=== PATIENT | female | born 1995 | race Caucasian/White ===

== ENCOUNTER 2021-06-14 01:59 | Inpatient (IN) ==
--- NOTE | 2021-06-12 08:28 | Anesthesiology Consultation ---
Date of Service June 12, 2021 Assessment & Plan (1) Encounter for pre-operative examination: COVID screening: Per assessment on 06/12: Travel screen negative, no known COVID- 19 positive contacts or current COVID-19 related symptoms. Patient vaccinated. Surgeon arranging preop COVID testing. Awaiting results. 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 Surgery Operation Date: 06/14/21 07:30 Proposed Procedures p Section in LD - Shilpa Candelario MD Height/Weight Height: 5 ft 2 in Weight: 122.47 kg Allergies Allergy/AdvReac Type Severity Reaction Status Date / Time No Known Allergies Allergy Verified 06/08/21 09:25 Medications Home Medications Medication Instructions Recorded Confirmed Last Taken prenat.vits,moshe,pib-[id number] 1 tab PO DAILY 10/30/20 06/12/21 Unknown diphenhydramine HCl [Unisom 1 tab PO HS 11/07/20 06/12/21 Unknown (diphenhydramine)] promethazine 12.5 mg tablet 12.5 mg PO Q6H PRN #30 tab 12/05/20 06/12/21 Unknown metoclopramide HCl 10 mg tablet 10 mg PO Q6H PRN #30 tab 12/18/20 06/12/21 Unknown (Reglan) famotidine 20 mg tablet (Pepcid) 20 mg PO BID #180 tab 01/02/21 06/12/21 Unknown vitamin B6-vitamin E-magnesium 1 tab PO DAILY 06/12/21 06/12/21 Unknown tablet Past Medical History Medical History Anxiety Endometriosis determined by laparoscopy GERD (gastroesophageal reflux disease) DURING Past Family History Family History Father Diabetes Brother Anxiety Grandmother (Maternal) Ovarian cancer great grandmother Grandfather (Maternal) Myocardial infarction Other No family history of adverse response to anesthesia Denies family history of Prostate cancer Breast cancer Colorectal cancer Past Surgical History Surgical History History of laparoscopy [place] teeth removed Social History Smoking Status: Never smoker Hx Alcohol Use: No Alcohol type: wine Hx Substance Use: No substance use type: does not use
--- NOTE | 2021-06-13 12:05 | History & Physical Report ---
Date of Service June 13, 2021 Assessment & Plan (1) Encounter for pre-operative examination: (2) Breech presentation: Plan: -NST reactive today, normal DVP, still breech on US -reviewed ecv vs proceeding w/ primary CS, pt desires to proceed with CS -Discussed indications, risks, benefits, alternatives with risks including infection, bleeding, injury to adjacent structures (bowel, bladder, ureters, blood vessels, nerves, baby), possible need for blood transfusion and/or life saving hysterectomy, VTE. Consent reviewed in detail w/ pt and signed after all questions answered to her satisfaction. History of Present Illness Chief Complaint: pre-op for CS, breech Primary Care Provider: AMADA Ireland 25 y/o G1 at 39 3/7 wga presents for pre-op appt for planned primary CS for breech. c/b resolved FGR, growth on 05/24 was EFW 26%. +FM; denies regular ctx, LOF, VB. 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 denies hx STIs 10/2018 neg cytology, denies hx abnl Allergies Allergy/AdvReac Type Severity Reaction Status Date / Time No Known Allergies Allergy Verified 06/13/21 11:26 Patient History Medical History Anxiety Endometriosis determined by laparoscopy GERD (gastroesophageal reflux disease) DURING Surgical History History of laparoscopy [place] teeth removed Family History Father Diabetes Brother Anxiety Grandmother (Maternal) Ovarian cancer great grandmother Grandfather (Maternal) Myocardial infarction Other No family history of adverse response to anesthesia Denies family history of Prostate cancer Breast cancer Colorectal cancer Social History Smoking Status: Never smoker Second Hand Exposure: Yes ( A CHILD); Hx Alcohol Use: No Hx Substance Use: No Preferred Language: Slovak Communication Ability: Effective Visual Impairment: No Limitations Hearing Ability: Normal Latexer Required: No Beliefs That Will Affect Care: None marital status: marital status details: Chao Chappell (23) [phone] Current Living Situation: Spouse Current Living Situation Comment: lives with Spouse. 1 cat-spouse changing litter. current occupational status: employed current occupation: [employer] Feels Safe at Home: Yes Dental Care, Regularly: Yes Physical Activity Frequency: 3-4 Times per Week Seatbelt Use: always Sunscreen Use: Yes Assistive Devices: None Physical Exam Genitourinary: OB Exam Abdomen: + breech NST reactive Results & Data ([facility]) Laboratory Results OB Labs: Blood Type B Positive 11/07/20 Antibody Screen NEGATIVE 11/07/20 Hemoglobin 11.5 g/dL (12.0-16.0) L 04/09/21 Hematocrit 35.5 % (37-47) L 04/09/21 Mean Corpuscular Volume 88.7 fL (80-100) 11/07/20 Platelet Count 407 K/uL (130-400) H 11/07/20 Rubella IgG Antibody Immune (Immune) 11/07/20 Rapid Plasma Reagin Nonreactive (Nonreactive) 11/07/20 Hepatitis B Surface Antigen Neg (Neg) 11/07/20 HIV (1&2) Ab and P24 Ag, 4th Gener Neg (Neg) 11/07/20 Glucose 1 Hour 50 gm Load 106 mg/dl (70-130) 04/09/21 Maternal Serum Alpha Fetoprotein 29.0 ng/mL 01/02/21 OB Optional Labs: Chlamydia trachomatis RNA NOT DETECTED (NOT DETECTED) 11/07/20 Neisseria gonorrhoeae RNA NOT DETECTED (NOT DETECTED) 11/07/20 Thyroid Stimulating Hormone (TSH) 4.310 uIu/ml (0.300-4.500) 05/18/20 Alpha Fetoprotein Triple Screen SEE NOTE 01/02/21 Labs Reviewed: neg cf/sma - SLN low risk cfdna neg afp GBS neg Covid neg Diagnostic Findings 05/24 EFW 26%, post plac Coding Level of Care Code None Diagnoses Encounter for pre-operative examination Z01.818 Breech presentation O32.1XX0
[2021-06-14] MEDS ORDERED: ceFAZolin 3,000 MG in DEXTROSE 5% 50 ML IV SCH (06:00)
[2021-06-14] MEDS ORDERED: CITRIC ACID/SODIUM CITRATE 15 ML UDC PO SCH (06:00)
[2021-06-14] MEDS ORDERED: LACTATED RINGER'S 1,000 ML IV SCH ×2 (06:00→10:32)
[2021-06-14 06:29] LABS: Basophils # (auto) 0.02 K/uL (0-0.2); Basophils % (auto) 0.1 %; Eosinophils # (auto) 0.12 K/uL (0-0.5); Eosinophils % (auto) 0.8 %; Hematocrit (blood only) 33.6 % (37-47); Hemoglobin 11.2 g/dL (12.0-16.0); Immature Granulocytes # (auto) 0.07 K/uL (0.00-0.02); Immature Granulocytes % (auto) 0.4 %; Lymphocytes # (auto) 2.18 K/uL (1.2-3.4); Lymphocytes % (auto) 13.7 %; Mean Corpuscular Hemoglobin 29.3 pg (25-34); Mean Corpuscular Hgb Conc 33.3 g/dL (32-36); Monocytes % (auto) 5.7 %; Neutrophils # (auto) 12.58 K/uL (1.4-6.5); Neutrophils % (auto) 79.3 %; Platelet Count 306 K/uL (130-400); RDW Coefficient of Variation 13.6 % (11.5-14.5); RDW Standard Deviation 43.9 fL (36.4-46.3); Red Blood Count 3.82 M/uL (4.2-5.4); White Blood Count 15.87 K/uL (4.8-10.8)
--- NOTE | 2021-06-14 07:21 | History & Physical Bridge Note ---
Date of Service June 14, 2021 History & Physical Bridge Note I have examined the patient, reviewed the History & Physical and in the interval since the performance of the History & Physical I have noted the following changes of clinical significance: no changes noted. BSUS confirms breech presentation this AM, will proceed with CS
[2021-06-14] MEDS ORDERED: NALBUPHINE HCL INJ 10 MG/ML AMP IV PRN (07:45)
[2021-06-14] MEDS ORDERED: PROMETHAZINE HCL 12.5 MG in SODIUM CHLORIDE 0.9% 50 ML IV PRN (07:45)
[2021-06-14] MEDS ORDERED: LACTATED RINGER'S 500 ML IV PRN (07:45)
[2021-06-14] MEDS ORDERED: diphenhydrAMINE 50 MG/ML VIAL IV PRN (07:45)
[2021-06-14] MEDS ORDERED: NALOXONE HCL 0.08 MG in SYRINGE 1.8 ML IV PRN (07:45)
[2021-06-14] MEDS ORDERED: SODIUM CHLORIDE 0.9% 1000ML 1,000 ML IV SCH (07:45)
[2021-06-14] MEDS ORDERED: NALOXONE HCL 0.4 MG/1 ML VIAL/CARP IV PRN (07:45)
[2021-06-14] MEDS ORDERED: KETOROLAC 30 MG/ML VIAL IV PRN (07:45)
[2021-06-14] MEDS ORDERED: MoRPHine SULFATE PF 1 MG/ML 10 ML AMP/VIAL INT SPINAL ONE (07:45)
[2021-06-14] MEDS ORDERED: NO NARCOTICS OR SEDATIVES SCH (07:45)
[2021-06-14] MEDS ORDERED: ePHEDrine sulfate 50 MG/ML AMP IV PRN (07:45)
[2021-06-14] MEDS ORDERED: NALOXONE HCL 1 MG in SODIUM CHLORIDE 0.9% 1000ML 1,000 ML IV PRN (07:45)
[2021-06-14] MEDS ORDERED: MoRPHine SULFATE 2 MG/ML CARP IV PRN (07:45)
[2021-06-14] MEDS ORDERED: ONDANSETRON INJ 2 MG/ML 2 ML VIAL IV PRN (07:45)
[2021-06-14] MEDS ORDERED: DC INTRASPINAL MORPHINE SCH (07:45)
--- NOTE | 2021-06-14 08:51 | Operative Report ---
PG Post Operative Report Pre & Post Diagnosis Operation Date: 06/14/21 07:30 Pre-Op Diagnosis: Single intrauterine at 39 4/7 wga; Breech Presentation; Resolved growth restriction; BMI 49 Post-Op Diagnosis: Single intrauterine at 39 4/7 wga; Breech Presentation; Resolved growth restriction; BMI 49 I identified the patient and participated in the time-out.: Yes Procedure Operation Date: 06/14/21 07:30 Actual Procedures p Primary Low Section in LD;delivery of live female - Shilpa Candelario MD Surgeon Shilpa Candelario MD Crystal Growing Technician MD Soniya Estimated Blood Loss 400 Findings Consistent with Post-Op Diagnosis Normal appearing uterus, bilateral fallopian tubes, ovaries. Viable female w/ apgars of 8 and 8 at 1 and 5 minutes, respectively Fluids 2300cc crystalloid, 50cc clear urine by og Specimens a. cord blood b. placenta-hold Drains Og draining clear urine Anesthesia Type Spinal Complications none Disposition Accompanied Patient To Recovery: Yes Disposition: L&D Indications 25 y/o G1 at 39 4/7 wga presents for planned primary for breech presentation. complicated by resolved growth restriction, most recently EFW 26% on 05/24. Fetus has been persistently breech and pt declines ECV. Description of Procedure The patient was taken to the operating room after consents were ensured. The patient was properly identified. Spinal anesthesia was obtained without difficulty. The patient was placed in a dorsal supine position with left lateral tilt, then prepped and draped in normal sterile fashion. Surgical time out was performed. Antibiotics were given for prophylaxis. Anesthesia was tested to ensure adequate surgical levels. Pfannenstiel skin incision was performed and carried down to the underlying fascia with a knife. The fascia was then nicked in the midline and extended laterally with pickups and Meyer scissors. Superior portion of the fascia was grasped with Kochers x2 and elevated off the underlying rectus muscles bluntly and sharply. Inferior portion of the fascia was then grasped with Анна clamps x2 and also elevated off the underlying muscles with blunt dissection. Midline was identified. The peritoneum was then entered and extended to provide adequate room for delivery of baby. The hand was inserted into the abdomen, uterus was noted to be clear of adhesions. Bladder blade was inserted, bladder flap was cr eated in the usual fashion. A low transverse uterine incision was made in the uterus and extended bluntly in a superior to inferior fashion. Amniotomy was made with clear fluid at the time of rupture. breech was elevated to the hysterotomy and delivered atraumatically. hips and legs were delivered spontaneously. Moist blue towel was wrapped around torso and delivered to level of scapula. Arms were swept across the chest bilaterally to deliver atraumatically. head delivered spontaneously afterward. Nose and mouth were bulb suctioned on the surgical field. The cord was double clamped and cut, baby was handed off to awaiting pediatrics staff. Cord segment and blood were obtained. Placenta was then expressed from the uterus. The uterus was exteriorized. Several passes were made inside the uterus to remove the remaining membranes. Attention was then turned to the hysterotomy, which was then closed with a running locked suture of 0 Vicryl on a CTX needle. An imbricating layer was then performed using 0-Monocryl. There was noted to be good hemostasis. The posterior cul-de-sac was then inspected and cleaned of clot and debris. The hysterotomy was again inspected and noted to be hemostatic. The uterus was returned to the abdomen. The right and left pericolic gutters were cleaned of all clot and debris. The hysterotomy was again noted to be hemostatic. Space of Retzius was noted to be hemostatic. The fascia was then closed with a running suture of 0 Vicryl on a CT1 needle. Subcutaneous tissue was copiously irrigated and noted to be hemostatic. Subcutaneous tissue was re-approximated using 2-0 plain gut. The skin was then closed with a running suture of 4-0 Monocryl in a subcuticular fashion. At termination of the procedure, the fundal pressure was applied and a moderate amount of lochia was expressed. Pressure dressing was applied to the patient. She tolerated the procedure well. All sponge, needle, instrument counts were correct x 2. I attest to the content of the Intraoperative Record and any orders documented therein. Any exceptions are noted below. OB Procedure Charges 67972
--- NOTE | 2021-06-14 08:51 | Post Operative Brief Note ---
PG Immediate Post Op with CF Date of Surgery June 14, 2021 Pre & Post Diagnosis Operation Date: 06/14/21 07:30 Pre-Op Diagnosis: SECTION; Breech Presentation Post-Op Diagnosis: SECTION; Breech Presentation I identified the patient and participated in the time-out.: Yes Procedure Operation Date: 06/14/21 07:30 Actual Procedures p Primary Low Transverse Section in LD;delivery of live female - Shilpa Candelario MD Surgeon Shilpa Candelario MD Unit Tender MD Soniya Estimated Blood Loss 400 Findings Consistent with Post-Op Diagnosis Normal appearing uterus, bilateral fallopian tubes, ovaries. Viable female infant w/ apgars of 8 and 8 Fluids 2300cc crystalloid, 50cc clear urine by og Specimens Specimen Description: a. cord blood b. placenta-hold Drains Og Catheter (inserted after spinal with return of clear yellow urine) Anesthesia Type Spinal Complications none Disposition Accompanied Patient To Recovery: Yes Disposition: L&D
[2021-06-14] MEDS ORDERED: MAGNESIUM HYDROXIDE SUSP 30 ML UDC PO PRN (10:32)
[2021-06-14] MEDS ORDERED: SENNA 8.6 MG TAB PO PRN (10:32)
[2021-06-14] MEDS ORDERED: HYDROCORTISONE ACETATE 25 MG SUPP PR PRN (10:32)
[2021-06-14] MEDS ORDERED: OXYTOCIN 20 UNITS in LACTATED RINGER'S 1,000 ML IV SCH (10:32)
[2021-06-14] MEDS ORDERED: BENZOCAINE 20% AER SPR 82.5 GM CAN EXT PRN (10:32)
[2021-06-14] MEDS ORDERED: DIPHTHERIA/TETANUS/PERTUSSIS 0.5 ML SYR/VIAL IM ONE (10:32)
[2021-06-14] MEDS: SIMETHICONE 80 MG CHEW PO SCH ×2 (13:18→19:26)
--- NOTE | 2021-06-14 13:26 | Anesthesiology Progress Note ---
Date of Service June 14, 2021 Anesthesia Post Procedure Vital Signs Vital Signs: Temp Pulse Resp BP Pulse Ox 06/14/21 11:08 93 H 122/62 06/14/21 11:03 82 100 06/14/21 10:58 87 100 06/14/21 10:56 75 118/57 L 06/14/21 10:53 96 H 100 06/14/21 10:51 36.6 C 18 06/14/21 10:48 95 H 100 06/14/21 10:43 97 H 100 06/14/21 10:38 94 H 100 06/14/21 10:33 87 99 06/14/21 10:28 77 100 06/14/21 10:26 80 116/53 L 06/14/21 10:23 83 100 06/14/21 10:21 18 06/14/21 10:18 75 100 06/14/21 10:13 84 100 06/14/21 10:08 92 H 100 06/14/21 10:03 76 99 06/14/21 09:58 80 98 06/14/21 09:53 89 98 06/14/21 09:51 36.6 C 73 20 113/55 L 06/14/21 09:48 79 98 06/14/21 09:43 75 97 06/14/21 09:41 70 18 111/56 L 06/14/21 09:38 75 96 06/14/21 09:33 82 97 06/14/21 09:31 74 18 111/57 L 06/14/21 09:28 80 96 06/14/21 09:23 75 97 06/14/21 09:22 75 115/54 L 06/14/21 09:21 20 06/14/21 09:18 94 H 96 06/14/21 09:13 78 98 06/14/21 09:11 83 18 118/56 L 06/14/21 09:08 91 H 97 06/14/21 09:04 77 18 103/53 L 06/14/21 09:03 86 100 06/14/21 08:58 77 100 06/14/21 08:53 36.7 C 83 20 99/50 L 100 06/14/21 06:59 80 134/90 06/14/21 05:43 36.8 C 18 06/14/21 05:41 105 H 142/69 H 06/14/21 05:40 36.8 C 18 Transfer of Care Handoff Completed per policy Notes Mental Status: alert / awake / arousable Patient Amnestic to Procedure: Yes Nausea / Vomiting: adequately controlled Pain: adequately controlled Airway Patency, RR, SpO2: stable & adequate BP & HR: stable & adequate Hydration State: stable & adequate Neuraxial Anesthesia: was administered and sensory block is resolving Anesthetic Complications: no major complications apparent
[2021-06-14] MEDS: DOCUSATE SODIUM 100 MG CAP PO SCH (20:31)
[2021-06-15] MEDS ORDERED: ONDANSETRON INJ 2 MG/ML 2 ML VIAL IV PRN (02:01)
[2021-06-15] MEDS ORDERED: diphenhydrAMINE Capsule 25 MG CAP PO PRN (02:01)
[2021-06-15] MEDS ORDERED: KETOROLAC 30 MG/ML VIAL IV PRN (02:01)
[2021-06-15] MEDS ORDERED: DC INTRASPINAL MORPHINE ONE (02:01)
[2021-06-15] MEDS ORDERED: PROMETHAZINE HCL 25 MG in SODIUM CHLORIDE 0.9% 50 ML IV PRN (02:01)
[2021-06-15] MEDS ORDERED: diphenhydrAMINE 50 MG/ML VIAL IV PRN (02:01)
[2021-06-15] MEDS: IBUPROFEN 600 MG TAB PO PRN ×4 (03:49→21:42)
[2021-06-15] MEDS: oxyCODONE/ACETAMINOPHEN 5mg/325mg TAB PO PRN ×4 (03:50→21:42)
--- NOTE | 2021-06-15 06:11 | Obstetrical Progress Note ---
Date of Service June 15, 2021 Assessment & Plan (1) Encounter for care and examination after delivery: Plan: 25 yo POD 1 s/p LCTS at 39 3/7weeks. -Continue routine care -Vitals reviewed- HDS, afebrile -B+, GBS-, Rubella immune -Encourage ambulation, regular diet -Pain control with ibuprofen, acetaminophen, percocet PRN -Encourage -Hgb 11.2 -F/u in 6 weeks withOB Admission and Anticipated Discharge Date Admission Date: June 14, 2021 Supervising Physician Co-Signing Physician Notes Resident Physician Supervision Note: I was present with Dr. Andino during the history and exam. I discussed the case with the resident and agree with the findings and plan as documented in the note. Any exceptions or clarifications are listed here: POD1 s/p pLTCS for breech, doing well. VSS, exam benign and wnl, dressing c/d/i. Continue routine pp care, plan to remove dressing today in shower Documented By: Shilpa Candelario MD Subjective POD1 s/p LCTS. Patient seen and examined at bedside. Reports no acute overnight events. Ambulating and voiding. Rivero removed yesterday and passed voiding trial. Passing gas, no BM yet. Pt is drinking well but had some nausea yesterday, so she did not eat much, but she is hungry this morning. Lochia small. Breast feeding without difficulty. Pain 2/10, controlled with NSAIDs and percocet. Review of Systems Review of Systems: All systems reviewed & are unremarkable except as noted in HPI & below Physical Exam Physical Exam: General: Alert, oriented, no acute distress Cardiac: Regular rate and rhythm, normal S1, S2. No murmurs appreciated. Respiratory: Clear to auscultation b/l with good air flow entry, symmetric chest rise and fall. No wheezes or crackles. No increased work of breathing or accessory muscle use Abdomen: Soft, nontender, nondistended. Fundus firm and palpable at 2 cm below umbilicus. Surgical incision clean, dry and intact without erythema, warmth or drainage. Bowel sounds appreciated. No guarding or rebound. Skin: No rashes or lesions Extremities: Warm, dry, well-perfused with capillary refill <2s b/l. No lower extremity edema, erythema or swelling. Negative Paulina's sign b/l. Results & Data ([facility]) Vital Signs (Past 12 Hours) Vital Signs Temp Pulse Resp BP Pulse Ox 06/15/21 04:15 16 96 06/15/21 04:00 18 96 06/15/21 03:50 36.3 C L 86 18 105/69 95 06/15/21 03:15 16 97 06/15/21 02:15 16 97 06/15/21 01:15 16 97 06/15/21 00:15 16 95 06/14/21 23:15 36.7 C 82 16 103/66 96 06/14/21 22:35 16 96 06/14/21 21:15 16 97 06/14/21 20:12 16 97 06/14/21 19:20 16 96 06/14/21 19:03 36.4 C L 82 16 128/74 96
[2021-06-15 06:19] LABS: Basophils # (auto) 0.02 K/uL (0-0.2); Basophils % (auto) 0.1 %; Eosinophils % (auto) 0.6 %; Hematocrit (blood only) 31.7 % (37-47); Hemoglobin 10.4 g/dL (12.0-16.0); Immature Granulocytes # (auto) 0.06 K/uL (0.00-0.02); Immature Granulocytes % (auto) 0.4 %; Lymphocytes # (auto) 1.84 K/uL (1.2-3.4); Lymphocytes % (auto) 11.4 %; Mean Corpuscular Hemoglobin 29.1 pg (25-34); Mean Corpuscular Hgb Conc 32.8 g/dL (32-36); Mean Corpuscular Volume 88.8 fL (80-100); Monocytes # (auto) 0.97 K/uL (0.11-0.59); Neutrophils # (auto) 13.16 K/uL (1.4-6.5); Neutrophils % (auto) 81.5 %; Platelet Count 263 K/uL (130-400); RDW Coefficient of Variation 13.4 % (11.5-14.5); RDW Standard Deviation 43.9 fL (36.4-46.3); Red Blood Count 3.57 M/uL (4.2-5.4); White Blood Count 16.15 K/uL (4.8-10.8)
[2021-06-15] MEDS: FERROUS SULFATE 325 MG TAB PO SCH (08:14)
[2021-06-15] MEDS: PRENATAL VITAMIN 1 TAB PO SCH (08:14)
[2021-06-15] MEDS: SIMETHICONE 80 MG CHEW PO SCH ×5 (08:14→21:10)
[2021-06-15] MEDS: DOCUSATE SODIUM 100 MG CAP PO SCH ×2 (08:14→20:48)
[2021-06-15] MEDS ORDERED: bisacodyL 5 MG TABEC PO SCH (20:00)
[2021-06-16] MEDS: oxyCODONE/ACETAMINOPHEN 5mg/325mg TAB PO PRN ×2 (02:21→07:40)
[2021-06-16] MEDS: IBUPROFEN 600 MG TAB PO PRN ×2 (02:22→07:40)
--- NOTE | 2021-06-16 06:01 | Obstetrical Progress Note ---
Date of Service June 16, 2021 Assessment & Plan (1) Encounter for care and examination after delivery: Plan: 25 yo POD 2 s/p LCTS at 39 3/7weeks. -Continue routine care -Vitals reviewed- HDS, afebrile -B+, GBS-, Rubella immune -Encourage ambulation, regular diet -Pain control with ibuprofen, acetaminophen, percocet PRN -Encourage -Discharge today -F/u in 6 weeks withOB Admission and Anticipated Discharge Date Admission Date: June 14, 2021 Supervising Physician Co-Signing Physician Notes Resident Physician Supervision Note: I was present with Dr. Andino during the history and exam. I discussed the case with the resident and agree with the findings and plan as documented in the note. Any exceptions or clarifications are listed here: stable, no pain control issues. eating, voiding, ambulating. no bleeding issues. abd soft ff 2 down nt, incision c/d/i ext nt calves pod#2 s/p LTCS, doing well, labs reviewed, desires dc home, well. rh pos, ri. instructions reviewed. Documented By: Rena Espana MD, FACOG Subjective POD2 s/p LCTS. Patient seen and examined at bedside. Reports no acute overnight events. Ambulating and voiding. Passing gas, no BM yet. Pt is eating and drinking without difficulty. Lochia small. Breast feeding with bottle supplementation without difficulty. Pain 2/10, controlled with NSAIDs and percocet, last percocet at 2AM. Pt would like to be discharged today. Review of Systems Review of Systems: Denies fevers/chills. Denies dyspnea, cough. Denies chest pain. Denies breast pain or discharge. Denies dysuria. Denies headache. Denies back pain. Physical Exam Physical Exam: General: Alert, oriented, no acute distress Cardiac: Regular rate and rhythm, normal S1, S2. No murmurs appreciated. Respiratory: Clear to auscultation b/l with good air flow entry, symmetric chest rise and fall. No wheezes or crackles. No increased work of breathing or accessory muscle use Abdomen: Soft, nontender, nondistended. Fundus firm and palpable at 2 cm below u mbilicus. Surgical incision clean, dry and intact without erythema, warmth or drainage. Bowel sounds appreciated. No guarding or rebound. Skin: No rashes or lesions Extremities: Warm, dry, well-perfused with capillary refill <2s b/l. No lower extremity edema, erythema or swelling. Negative Paulina's sign b/l. Results & Data ([facility] [place]) Vital Signs (Past 12 Hours) Vital Signs Temp Pulse Resp BP Pulse Ox 06/15/21 23:40 36.6 C 82 18 113/77 97
[2021-06-16] MEDS: DOCUSATE SODIUM 100 MG CAP PO SCH (07:39)
[2021-06-16] MEDS: FERROUS SULFATE 325 MG TAB PO SCH (07:39)
[2021-06-16] MEDS: SIMETHICONE 80 MG CHEW PO SCH (07:39)
[2021-06-16] MEDS: PRENATAL VITAMIN 1 TAB PO SCH (07:40)
[2021-06-16] MEDS ORDERED: bisacodyL 10 MG SUPP PR PRN (08:47)
--- NOTE | 2021-06-17 20:29 | Discharge Summary ---
Date of Service June 17, 2021 Admission HPI Per Admitting Provider 25 y/o G1 at 39 3/7 wga presents for pre-op appt for planned primary CS for breech. c/b resolved FGR, growth on 05/24 was EFW 26%. +FM; denies regular ctx, LOF, VB. 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 complicated by resolved growth restriction, most recently EFW 26% on 05/24. Fetus has been persistently breech and pt declines ECV. See operative report for details. Postoperatively, the pt did well and was discharged home on POD2 Coding Level of Care Code None Diagnoses Breech presentation O32.1XX0
== END 2021-06-16 11:00 | disposition home or self-care (01) | DRG 788 ==
LOC: 4S1 01:59 → EDSTATUS 07:30 → 4E1 11:35